=== PATIENT | female | born 1970 | race Caucasian/White ===

== ENCOUNTER 2017-04-18 15:08 | Observation (INO) ==
[2017-04-18] MEDS ORDERED: Ondansetron 4 MG/2 ML VIAL IVP ONE (15:36)
[2017-04-18] MEDS ORDERED: 0.9 % Sodium Chloride 1,000 ML IVC ONE (15:36)
[2017-04-18] MEDS ORDERED: Ketorolac 30 MG/ML VIAL IVP ONE (15:36)
[2017-04-18] MEDS ORDERED: *HR* LORazepam 2 MG/ML VIAL ONE (15:42)
--- NOTE | 2017-04-18 16:06 | Emergency Department Note ---
Disposition Clinical Impression: Ureterolithiasis Hydronephrosis Qualifiers: Hydronephrosis type: with ureteral calculous obstruction Qualified Code(s): N13.2 - Hydronephrosis with renal and ureteral calculous obstruction Disposition: Admitted As Inpatient Condition: Fair Forms: ED Satisfaction Letter, Work/School Release Time of Disposition: 17:47 Abdominal Pain HPI - General Chief Complaint: ED Abdominal Pain Stated Complaint: kidney stone Time Seen by Provider: 04/18/17 15:13 Source: patient Mode of arrival: ambulatory Limitations: no limitations Nursing Notes Reviewed: Yes Vital Signs Reviewed: Yes - History of Present Illness HPI Narrative: Patient is a 46-year-old female who presents to [facility] ED with a chief complaint of right lower quadrant abdominal pain x 2 weeks. States she has a history of kidney stones and this feels just like a kidney stone. States she has had many kidney stones in the past and has had to have surgery 10 years ago for this. Admits to nausea and dry heaving, no vomiting. No fevers or chills. Has been experiencing some burning with urination. Pt Subjective Complaint: abdominal pain Onset (ago): week(s) Consistency: Worsening Location: RLQ Pain Severity: severe Pain Scale: 9 Quality: aching Radiation: none Migration to: no migration Improves with: nothing Worsens with: nothing Associated symptoms: Reports: nausea, dysuria. Denies: vomiting, diarrhea, fever Treatments prior to arrival: none - Related Data Home Medications Medication Instructions Recorded Confirmed Albuterol Sulfate [Albuterol 2 puff IH Q4H PRN 11/18/16 02/02/17 Inhaler] Budesonide/Formoterol 160/4.5 2 puff IH BIDR 11/18/16 02/02/17 [Symbicort 160/4.5] Previous Rx's Medication Instructions Recorded Azithromycin [Azithromycin 6-Tab 250 mg PO PER PKG DI #6 tab 02/02/17 Pack] Benzonatate [Tessalon] 100 - 200 mg PO TID PRN #30 capsule 02/02/17 predniSONE [PredniSONE] 20 mg PO DAILY #18 tablet 02/02/17 Allergies Allergy/AdvReac Type Severity Reaction Status Date / Time No Known Allergies Allergy Verified 02/02/17 11:35 All systems ED: reviewed and negative except as stated. 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 , bilateral tubal ligation Psychiatric history: Reports: anxiety - Social History Smoking status: Never smoker Alcohol use: Reports: none Drug use: Reports: none Physical Exam - General Limitations: no limitations General appearance: alert - Head Head exam: atraumatic, normocephalic, normal inspection - Eye Eye exam: Present: normal appearance, PERRL, EOMI - ENT ENT exam: normal exam, normal oropharynx, mucous membranes moist - Neck Neck exam: Present: normal inspection, full ROM, trachea midline - Chest Chest inspection: Present: normal inspection, symmetric chest wall rise - Respiratory Respiratory exam: Present: normal lung sounds bilaterally - Cardiovascular Cardiovascular exam: Present: regular rate, normal rhythm, normal heart sounds - Abdominal Exam Abdominal exam: Present: soft, tenderness. Absent: distention, guarding, rebound, rigidity Abdominal tenderness: Present: RLQ, moderate - Extremities Exam Extremities exam: Present: normal inspection, full ROM. Absent: tenderness, pedal edema - Back Exam Back exam: Present: normal inspection, full ROM. Absent: tenderness - Neurological Exam Neurological exam: Present: alert, oriented X3 - Psychiatric Psychiatric exam: Present: normal affect, normal mood - Skin Skin exam: Present: warm, dry, intact, normal color Course Course Narrative: Patient seen and examined. Right lower quadrant abdominal pain with history of kidney stones. Since she has been trying to pass this on for the last 2 weeks and has had required prior surgery for this, we will order a CT abdomen and pelvis. We will check basic labs her renal function and urine analysis. Toradol ordered for pain but patient states she is allergic. 1 mg IV Dilaudid ordered. Patient follows with urologist Dr. Belcher. - Reevaluation(s) Reevaluation #1: Lab work and urine analysis unremarkable. CT scan shows 5 mm stone in the right mid ureter causing mild hydronephrosis. Patient is requesting for this to be removed since she has waited it out at home for the last 2 weeks. I discussed the case with urologist Dr. Torrez who has accepted patient for admission. Time: 17:47 Vital Signs Temperature 98.4 F 04/18/17 15:11 Pulse Rate 84 04/18/17 15:11 Respiratory Rate 18 04/18/17 15:11 Blood Pressure 124/83 04/18/17 15:11 O2 Sat by Pulse Oximetry 97 04/18/17 15:11 Temperature 98.4 F 04/18/17 15:11 Pulse Rate 84 04/18/17 15:11 Respiratory Rate 18 04/18/17 15:11 Blood Pressure 124/83 04/18/17 15:11 O2 Sat by Pulse Oximetry 97 04/18/17 15:11 Oxygen Delivery Oxygen Delivery Room Air Abdominal Pain - Medical Records Medical records reviewed: Yes I reviewed the patient's medical records. - Lab Data Lab results reviewed: Yes I reviewed the patient's lab results. Result diagrams: 04/18/17 16:24 04/18/17 16:24 Lab Results 04/18/17 04/18/17 04/18/17 Range/Units 16:24 16:24 17:03 WBC 6.4 (4.3-11.1) K/mcL RBC 5.23 H (3.82-4.97) M/mcL Hgb 14.9 (11.5-15.4) g/dL Hct 45.1 H (35.3-44.9) % MCV 86.2 (83.0-100.0) fL MCH 28.5 (28.0-33.3) pg MCHC 33.0 (31.6-35.5) g/dL RDW 12.5 (11.5-14.5) % Plt Count 224 (140-400) K/mcL MPV 9.5 (9.4-12.4) fL Immature Gran % 0.2 (0-4) % Seg Neutrophils % 57.8 % Lymphocytes % 33.5 % Monocytes % 6.5 % Eosinophils % 1.4 % Basophils % 0.6 % Neutrophils # 3.7 (1.6-8.9) K/mcL Lymphocytes # 2.2 (0.6-4.6) K/mcL Monocytes # 0.4 (0.0-1.3) K/mcL Eosinophils # 0.1 (0.0-0.6) K/mcL Basophils # 0.0 (0.0-0.2) K/mcL Sodium 138 (136-145) mEq/L Potassium 3.8 (3.5-5.1) mEq/L Chloride 107 (98-107) mEq/L Carbon Dioxide 24 (23-29) mEq/L BUN 9 (6-20) mg/dL Creatinine 0.61 (0.60-1.20) mg/dL Est GFR ( Amer) > 60 (> 60) Est GFR (Non-Af Amer) > 60 (> 60) BUN/Creatinine Ratio 15 (6-26) Glucose 90 (70-105) mg/dL Calculated Osmolality 284 (280-300) Calcium 9.6 (8.6-10.3) mg/dL Total Bilirubin 0.4 (0.3-1.0) mg/dL Direct Bilirubin 0.1 (0.0-0.2) mg/dL Indirect Bilirubin 0.3 (0.0-1.2) mg/dL AST 41 H (13-39) Units/L ALT 48 (7-52) Units/L Alkaline Phosphatase 71 (34-104) Units/L Serum Total Protein 7.3 (6.4-8.9) g/dL Albumin 4.2 (3.5-5.7) g/dL Globulin 3.1 (2.4-3.5) g/dL Albumin/Globulin Ratio 1.4 (1.1-2.2) Lipase 10 L (11-82) Units/L Urine Color Yellow (Yellow) Urine Clarity Cloudy A (Clear) Urine pH 5.5 (5.0-8.0) pH Units Ur Specific [place] 1.028 H (1.010-1.025) Urine Protein 30 H (Neg-Trace) mg/dL Urine Glucose (UA) Normal (Normal) mg/dL Urine Ketones Negative (Negative) mg/dL Urine Blood Large H (Negative) Urine Nitrite Negative (Negative) Urine Bilirubin Negative (Negative) Urine Urobilinogen Normal (Normal) mg/dL Ur Leukocyte Esterase Negative (Negative) - Radiology Data Radiology results reviewed: Yes I reviewed the patient's radiology results. Abdomen/Pelvis CT 04/18/17 15:37 IMPRESSION: 1. Mildly obstructing right mid ureterolithiasis. 2. Left nephrolithiasis peer D/ / Mark Petty MD / Mark Petty MD Interpreting Provider: Mark Petty MD
[2017-04-18 16:37] LABS: Basophils % 0.6 %; Eosinophils # 0.1 K/mcL (0.0-0.6); Eosinophils % 1.4 %; Hematocrit 45.1 % (35.3-44.9); Hemoglobin 14.9 g/dL (11.5-15.4); Immature Granulocytes % 0.2 % (0-4); Lymphocytes # 2.2 K/mcL (0.6-4.6); Lymphocytes % 33.5 %; Mean Corpuscular Hemoglobin 28.5 pg (28.0-33.3); Mean Corpuscular Volume 86.2 fL (83.0-100.0); Mean Platelet Volume 9.5 fL (9.4-12.4); Monocytes # 0.4 K/mcL (0.0-1.3); Monocytes % 6.5 %; Neutrophils # 3.7 K/mcL (1.6-8.9); Platelet Count 224 K/mcL (140-400); Red Blood Count 5.23 M/mcL (3.82-4.97); Red Cell Distribution Width 12.5 % (11.5-14.5); Segmented Neutrophils % 57.8 %
--- NOTE | 2017-04-18 16:38 | Emergency Department Note ---
START Narrative - START START: I examined this patient and my medical decision-making was reviewed with the Resident Physician. I agree with the documented findings, disposition and treatment plan as described except to the extent set forth below. 46 year old female prsents to the ED with complaints of kdiney stne pain. She states that she has passed most of her stones but has only neede bsket retrival once per Dr. Belcher. She states that she has tried to pass this stone for the past two weeks and has been unsuccessful and the pain is reoccuring more frequently. I have informed patine toher right sided kidney stone with hydro and she would like to have it immeadiately removed secondary to intractable pain and nausea/vomitting. We will complete workup and consult urology for admission.
[2017-04-18] MEDS ORDERED: *HR* HYDROmorphone (PF) 1 MG/ML SYRINGE IVP ONE (16:43)
[2017-04-18 16:53] LABS: Alanine Aminotransferase 48 Units/L (7-52); Albumin 4.2 g/dL (3.5-5.7); Albumin/Globulin Ratio 1.4 (1.1-2.2); Alkaline Phosphatase 71 Units/L (34-104); Aspartate Amino Transferase 41 Units/L (13-39); BUN/Creatinine Ratio 15 (6-26); Bilirubin,Direct 0.1 mg/dL (0.0-0.2); Bilirubin,Indirect 0.3 mg/dL (0.0-1.2); Bilirubin,Total 0.4 mg/dL (0.3-1.0); Blood Urea Nitrogen 9 mg/dL (6-20); Calcium 9.6 mg/dL (8.6-10.3); Carbon Dioxide 24 mEq/L (23-29); Chloride 107 mEq/L (98-107); Globulin 3.1 g/dL (2.4-3.5); Glucose 90 mg/dL (70-105); Lipase 10 Units/L (11-82); Osmolality,Calculated 284 (280-300); Potassium 3.8 mEq/L (3.5-5.1); Sodium 138 mEq/L (136-145); Total Protein 7.3 g/dL (6.4-8.9); eGFR For African Americans > 60 (> 60); eGFR For Non-African Americans > 60 (> 60)
[2017-04-18 17:14] LABS: Bilirubin,Urine Negative (Negative); Blood,Urine Large (Negative); Clarity,Urine Cloudy (Clear); Color,Urine Yellow (Yellow); Glucose,Urine (UA) Normal (Normal); Ketones,Urine Negative (Negative); Leukocyte Esterase,Urine Negative (Negative); Nitrite,Urine Negative (Negative); PH,Urine 5.5 pH Units (5.0-8.0); Protein,Urine 30 mg/dL (Neg-Trace); Specific Gravity,Urine 1.028 (1.010-1.025); Urobilinogen,Urine Normal (Normal)
[2017-04-18 17:17] LABS: Bacteria,Urine None Seen per hpf (None-Few); Hyaline Casts,Urine None Seen per lpf (None-Few); Squamous Epithelial Cell,Urine Many per lpf (None-Few); WBC,Urine 0-3 per hpf (0-3)
[2017-04-18 17:56] LABS: RBC,Urine 50-100 per hpf (0-3)
[2017-04-18] MEDS ORDERED: Ketorolac 15 MG/ML VIAL IM PRN (18:40)
[2017-04-18] MEDS ORDERED: *HR* HYDROcodone/Acet 10/325 mg TABLET PO PRN (18:43)
[2017-04-18] MEDS ORDERED: *HR* OxyCODONE Oral Soln 5 MG/5 ML UD.LIQ PO PRN (18:44)
[2017-04-18] MEDS ORDERED: Ondansetron 4 MG/2 ML VIAL IVP PRN (18:46)
[2017-04-18] MEDS ORDERED: Ondansetron 4 MG/2 ML VIAL ONE (18:52)
[2017-04-18] MEDS: 0.9 % Sodium Chloride 1,000 ML IVC SCH (18:57)
[2017-04-18] MEDS: Budesonide/Formoterol 160/4.5 MDI IH SCH (20:26)
[2017-04-19] MEDS: 0.9 % Sodium Chloride 1,000 ML IVC SCH ×3 (03:05→23:13)
--- NOTE | 2017-04-19 08:01 | Urology History & Physical ---
Date of Encounter: 04/19/17 Time of Encounter: 07:59 Assessment and Plan (1) Ureterolithiasis Current Visit: Yes Status: Acute 46-year-old woman with a right ureteral stone was admitted for pain control. Her pain is still persistent today. She wishes to have her stone treated. I recommend proceeding with a right ureteroscopy, laser lithotripsy, and stent placement. She was informed of the risks of the procedure including but not limited to bleeding, infection, injury to other structures, need for further procedures, stent irritation, incomplete fragmentation, ureteral perforation, need for nephrostomy tube, need for open repair, risks unforeseen, and the risk of anesthesia. She is willing to proceed. History of Present Illness Chief complaint: Right ureteral stone HPI: Ms. Grover is a 46 year old female who presents with concern for right flank and right lower quadrant pain. The pain has been going on for 2 weeks. It became more severe yesterday and she presented to the emergency department. A CT scan showed evidence of a mid right ureteral stone. There was evidence of hydronephrosis. She was having worsening pain and was admitted. The pain has been sharp. It has been getting worse over time. Pain medication has improved, but oral medication was not adequate which led to the admission. She denies any fevers or chills. She has a history of overactive bladder and is status post InterStim placement. Past Med Surg Social Fam HX - Past Medical History Medical history: asthma, kidney stones Psychiatric history: anxiety - Past Surgical History Surgical History: , hysterectomy, ureteral stent, other - Social History Smoking Status: Never smoker Smokeless Tobacco Status: No Alcohol use: none Drug use: none - Family History Father Hx Family Genitourinary Disorders: Yes (Kidney stones) Medications and Allergies Albuterol Sulfate [Albuterol Inhaler] 2 puff IH Q4H PRN 11/18/16 [History] Budesonide/Formoterol 160/4.5 [Symbicort 160/4.5] 2 puff IH BIDR 11/18/16 [ History] Azithromycin [Azithromycin 6-Tab Pack] 250 mg PO PER PKG DI #6 tab 02/02/17 [Rx] Benzonatate [Tessalon] 100 - 200 mg PO TID PRN #30 capsule 02/02/17 [Rx] predniSONE [PredniSONE] 20 mg PO DAILY #18 tablet 02/02/17 [Rx] 3 Allergy/AdvReac Type Severity Reaction Status Date / Time No Known Allergies Allergy Verified 02/02/17 11:35 Review of Systems - Constitutional no chills, no fever(s) - EENT Nose, mouth and throat: no dizziness - Cardiovascular no chest pain - Respiratory no dyspnea - Gastrointestinal nausea, no vomiting - Genitourinary Genitourinary: flank pain, no hematuria - Musculoskeletal no back pain - Integumentary no erythema, no rash - Neurological no weakness - Psychiatric no suicidal ideation - Hematologic/Lymphatic no easy bleeding - Allergic/Immunologic no wheezing Exam Initial Vital Signs Temp Pulse Resp BP Pulse Ox 98.4 F 84 18 124/83 97 04/18/17 15:11 04/18/17 15:11 04/18/17 15:11 04/18/17 15:11 04/18/17 15:11 - General physical appearance Present: well developed, well nourished, no distress - Eyes Absent: icteric - ENT Present: normal nares - Neck Present: trachea midline - Respiratory Present: normal respiratory effort - Cardiovascular Cardiovascular exam IM: RRR - Abdomen Abdomen: Present: soft - Integumentary Present: no rash - Neurologic Present: normal coordination - Musculoskeletal Present: other (No edema) Urology Results - Labs 04/18/17 16:24 04/18/17 16:24 Abnormal lab results RBC 5.23 M/mcL (3.82-4.97) H 04/18/17 16:24 Hct 45.1 % (35.3-44.9) H 04/18/17 16:24 AST 41 Units/L (13-39) H 04/18/17 16:24 Lipase 10 Units/L (11-82) L 04/18/17 16:24 Urine Clarity Cloudy (Clear) A 04/18/17 17:03 Ur Specific [place] 1.028 (1.010-1.025) H 04/18/17 17:03 Urine Protein 30 mg/dL (Neg-Trace) H 04/18/17 17:03 Urine Blood Large (Negative) H 04/18/17 17:03 Urine Microscopic RBC 50-100 per hpf (0-3) H 04/18/17 17:03 Ur Squamous Epith Cells Many per lpf (None-Few) H 04/18/17 17:03 All other labs normal. - Imaging CT scan - abdomen: report reviewed, image reviewed CT scan - pelvis: report reviewed, image reviewed
--- NOTE | 2017-04-19 08:02 | Anesthesia Evaluation PreOp ---
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.) Anesthesia History: No Prior Anesthetic Complications, Past Anesthesia (Hyster, , Interstim placmeent) : No Test: Negative Alcohol Use: none Drug use: none Medications and Allergies Albuterol Sulfate [Albuterol Inhaler] 2 puff IH Q4H PRN 11/18/16 [History] Budesonide/Formoterol 160/4.5 [Symbicort 160/4.5] 2 puff IH BIDR 11/18/16 [ History] Azithromycin [Azithromycin 6-Tab Pack] 250 mg PO PER PKG DI #6 tab 02/02/17 [Rx] Benzonatate [Tessalon] 100 - 200 mg PO TID PRN #30 capsule 02/02/17 [Rx] predniSONE [PredniSONE] 20 mg PO DAILY #18 tablet 02/02/17 [Rx] Docusate [Colace] 100 mg PO BID #60 capsule 04/19/17 [Rx] Oxycodone HCl/Acetaminophen [Percocet 5-325 mg Tablet] 1 each PO Q6HR PRN 4 Days #15 tablet 04/19/17 [Rx] Phenazopyridine HCl [Pyridium] 200 mg PO TIDAC #12 tab 04/19/17 [Rx] 3 Allergy/AdvReac Type Severity Reaction Status Date / Time No Known Allergies Allergy Verified 02/02/17 11:35 - Meds/Allergy Pre-op Review Medications Reviewed: Yes Allergies Reviewed: Yes Beta Blockers on Current Med List: No Anesthesia Results - Labs 04/18/17 16:24 04/18/17 16:24 Anesthesia Exam Vital Signs Temp Pulse Resp BP Pulse Ox 04/19/17 07:00 98.1 F 74 16 111/77 97 04/19/17 05:12 98.0 F 68 16 137/82 97 04/19/17 01:08 97.9 F 77 16 138/73 97 04/18/17 18:35 98.2 F 65 15 112/54 98 04/18/17 17:59 69 18 120/75 98 04/18/17 15:11 98.4 F 84 18 124/83 97 Intake and Output 04/18/17 04/19/17 04/19/17 23:59 07:59 15:59 Intake Total 1000 / 1000 1000 / 1000 Output Total 300 / 300 300 / 300 Balance 700 / 700 700 / 700 Intake: IV Fluids 1000 / 1000 1000 / 1000 0.9 % Sodium Chloride 1,000 ML 1000 / 1000 1000 / 1000 @ 125 mls/hr IVC .Q8H MARGARET Rx#: [id number] Oral 0 / 0 0 / 0 Output: Urine 300 / 300 300 / 300 Other: Stool Characteristics Normal for Patient Weight 97.12 kg 98.612 kg Blood Glucose* 77 Patient Weight 04/19/17 23:59 Weight 98.612 kg Height: 5'3" Weight: 217# BMI = 38.5 NPO (# of Hours): MNoc Pain Scale Used: Numeric (1 - 10) - HEENT Pupil (Motor): Pupils equal, EOMI Mallampati: II Teeth: Normal Oral Opening: Greater than 3 - VOLLEYBALL REFEREE LOC: Oriented VOLLEYBALL REFEREE Motor: Normal RUE, Normal LUE, Normal RLE, Normal LLE, Normal Face VOLLEYBALL REFEREE Sensory: Normal: RUE, LUE, RLE, LLE, Face - Cardiac Rhythm: Regular JVD: Yes - Pulmonary Breath Sounds: bilateral Clear Respiratory Effort: Symmetrical Anesthesia Assess/Plan ASA Score: 3 Modified [place] Scale for Level of Consciousness: Cooperative, oriented, and tranquil Anesthetic Plan: General Monitoring Plan: Standard Monitors Recovery Plan: PACU Anes Supervising Prov Stmt: PT seen/evaluated, R&B discussed, questions answered and consent obtained. Ngoc Guzman MD
[2017-04-19] MEDS ORDERED: ceFAZolin 2,000 MG in D5% in Water (Mini-Bag+) 100 ML IVPB ONE (08:23)
[2017-04-19] MEDS ORDERED: D5% in Water (Mini-Bag+) 100 ML IVPB ONE (08:35)
--- NOTE | 2017-04-19 09:04 | Operative Note ---
Date of procedure: 04/19/17 Pre-op diagnosis: Right ureteral stone Post-op diagnosis: same Procedure: Right ureteroscopy, laser lithotripsy, and stent placement. Implants: 6 Vietnamese x 24 cm JJ stent. Complications: none Anesthesia: ISABELLAA Surgeon: Floyd Torrez Was there an account management assistant present: No Estimated blood loss (cc): 1 Specimen: Right ureteral stone Condition: stable Disposition: PACU Procedure in Detail: Indications: Kinjal is a 46-year-old woman who has a history of right flank pain. A CT scan showed a mid right ureteral stone. She has tried to pass the stone on her own but has not been able to do so. She is still having flank pain. She wishes to have the stone removed. Therefore, she elected undergo a right ureteroscopy, laser lithotripsy, basket stone extraction, and ureteral stent placement. She is aware of the risks of the procedure including but not limited to bleeding, infection, injury to other structures, need for further procedures, need for stent, stent irritation, need for nephrostomy tube, incomplete treatment, need for open repair, risks unforeseen, and the risk of anesthesia. She is on proceed. Procedure: After informed consent was obtained the patient was brought back to the operating room and placed in supine position. A time out was performed. General anesthesia was administered and an LMA was placed. She was then placed in the lithotomy position. She was prepped and draped in the usual sterile fashion. Cystoscopy was performed. The anterior urethra was normal. There was no evidence of bladder tumors. The ureteral orifices were in the normal orthotopic position. The zip wire was placed up the right ureter and was brought into the kidney under fluoroscopic guidance. The ureter was dilated with the 8/10 Vietnamese ureteral dilator. I then advanced the semirigid ureteroscope into the ureter. The stone was not seen in the distal ureter. A sensor wire was placed. The flexible ureteroscope was advanced into the mid ureter. The stone was seen over top her spine hardware on fluoroscopy. The stone was fragmented using the 200 micron laser fiber. The stone fragments were basket extracted. A 6 Vietnamese by 24cm JJ stent was then placed with good curl seen in the kidney and the bladder. The dangle string was left intact. The string was tucked into the vagina and will be used to remove the stent at a later date. The patient was then awakened from general anesthesia and brought to recovery room in good condition. All sponge, needle, and instrument counts were correct.
--- NOTE | 2017-04-19 09:06 | Discharge Summary ---
Date of Encounter: 04/21/17 Time of Encounter: 11:56 - Discharge Diagnosis (1) Ureterolithiasis Priority: Primary Status: Acute (2) Difficulty breathing Priority: Secondary Status: Acute - Discharge Medications Prescriptions: Oxycodone HCl/Acetaminophen [Percocet 5-325 mg Tablet] 1 each PO Q6HR PRN 4 Days #15 tablet PRN Reason: Pain Docusate [Colace] 100 mg PO BID #60 capsule Phenazopyridine HCl [Pyridium] 200 mg PO TIDAC #12 tab Home Medications: Albuterol Sulfate [Albuterol Inhaler] 2 puff IH Q4H PRN 11/18/16 [History] Budesonide/Formoterol 160/4.5 [Symbicort 160/4.5] 2 puff IH BIDR 11/18/16 [ History] Docusate [Colace] 100 mg PO BID #60 capsule 04/19/17 [Rx] Oxycodone HCl/Acetaminophen [Percocet 5-325 mg Tablet] 1 each PO Q6HR PRN 4 Days #15 tablet 04/19/17 [Rx] Phenazopyridine HCl [Pyridium] 200 mg PO TIDAC #12 tab 04/19/17 [Rx] Allergies/Adverse Reactions: 3 Allergy/AdvReac Type Severity Reaction Status Date / Time No Known Allergies Allergy Verified 02/02/17 11:35 Labs on day of discharge: Labs from last 24 hours 04/19/17 04/19/17 05:24 01:06 POC Glucose 77 99 H Date of admission: 04/18/17 17:43 Primary care physician: Cayetano Cortes Discharging clinician: Floyd Torrez Anticipated date of discharge: 04/21/17 - Patient Status Disposition: Home, Self-Care Condition: Fair Functional capacity at discharge: independent ambulation Overall status at discharge: patient is progressing back to baseline - Discharge Instructions Follow Up With: Ian Belcher MD [Partnered Physician] - 05/04/17 8:30 am (2-4 weeks with KUB prior) Additional Instructions: 1. She should expect to feel flank pain with voiding. 2. The patient should call for any fevers, chills, nausea, emesis, or uncontrolled pain. 3 Please provide a work excuse if necessary for up to 1 week off. - Diet and Activity Activity: increase activity as tolerated Diet: advance to your usual diet - Hospital Course Hospital course: Ms. Grover is a 46 year old female with a history of right flank pain from an obstructing right ureteral stone. She was admitted on 04/18/2017. On 04/19/2017 she underwent a right ureteroscopy, laser lithotripsy, and stent placement. She had pain control issues and remain in the hospital until postoperative day # 1. On postoperative day #1, she developed some shortness of breath. An internal medicine consultation was obtained. She had a chest x-ray and a d-dimer was normal. She was given some Benadryl and felt better. On postoperative day #2, I removed her stent. She had some pain after the stent was removed but felt better by the afternoon. At that point she was discharged home in good condition. - Time Spent with Patient Total time spent providing and/or coordinating discharge services: Exam Initial Vital Signs Temp Pulse Resp BP Pulse Ox 98.4 F 84 18 124/83 97 04/18/17 15:11 04/18/17 15:11 04/18/17 15:11 04/18/17 15:11 04/18/17 15:11 - General physical appearance Present: well developed, well nourished, no distress - Eyes Absent: icteric - ENT Present: normal nares - Neck Present: trachea midline - Respiratory Present: normal respiratory effort - Cardiovascular Cardiovascular exam IM: RRR - Abdomen Abdomen: Present: soft
[2017-04-19] MEDS ORDERED: Metoclopramide 10 MG/2 ML VIAL ONE (09:20)
[2017-04-19] MEDS ORDERED: Acetaminophen IV 1,000 MG/100 ML INFUS..BTL ONE (09:20)
[2017-04-19] MEDS ORDERED: Famotidine 20 MG/2 ML VIAL ONE (09:21)
[2017-04-19] MEDS ORDERED: *HR* FentaNYL (PF) 100 MCG/2 ML VIAL ONE (09:24)
[2017-04-19] MEDS ORDERED: *HR* Midazolam HCl 2 MG/2 ML VIAL ONE (09:24)
[2017-04-19] MEDS ORDERED: *HR* Propofol 200 MG/20 ML VIAL IVP ONE (09:24)
[2017-04-19] MEDS ORDERED: Lidocaine -MPF 2% 2 ML VIAL ONE ×2 (09:24→10:07)
[2017-04-19] MEDS ORDERED: Dexamethasone 4 MG/ML VIAL ONE (09:41)
[2017-04-19] MEDS ORDERED: Ondansetron 4 MG/2 ML VIAL ONE (09:41)
[2017-04-19] MEDS ORDERED: *HR* HYDROmorphone 2 MG TABLET PO PRN (09:58)
[2017-04-19] MEDS ORDERED: *HR* OxyCODONE Immed Rel 5 MG TABLET PO PRN (09:58)
[2017-04-19] MEDS ORDERED: *HR* HYDROcodone/Acet 7.5/325 mg TABLET PO PRN (09:58)
[2017-04-19] MEDS ORDERED: *HR* Labetalol 20 MG/4 ML SYRINGE IVP PRN (09:58)
[2017-04-19] MEDS ORDERED: *HR* Promethazine 25 MG/ML VIAL IVP PRN (09:58)
[2017-04-19] MEDS: MORPHINE SUL Oral CONC 10 MG/0.5 ML ORAL.SYG SL PRN ×2 (10:41→10:52)
--- NOTE | 2017-04-19 11:00 | Anesthesia Evaluation Post Op ---
Date of Encounter: 04/19/17 Time of Encounter: 10:59 - Vital Signs Vital Signs: Vital Signs/O2 Sat/Glucose, Most Current Temp Pulse Resp BP Pulse Ox 04/19/17 10:53 98.0 F 75 16 115/82 95 04/19/17 10:43 79 16 121/86 95 04/19/17 10:33 72 14 114/79 94 04/19/17 10:23 97.7 F 87 16 128/90 96
[2017-04-19] MEDS: Budesonide/Formoterol 160/4.5 MDI IH SCH ×2 (11:05→22:50)
[2017-04-19] MEDS ORDERED: 0.9 % Sodium Chloride 500 ML ONE (11:11)
[2017-04-19] MEDS: Ondansetron 4 MG/2 ML VIAL IVP PRN ×2 (11:56→17:22)
[2017-04-19] MEDS: *HR* OxyCODONE Oral Soln 5 MG/5 ML UD.LIQ PO PRN ×2 (11:57→18:52)
[2017-04-19] MEDS: Ketorolac 15 MG/ML VIAL IM PRN ×2 (12:47→17:21)
[2017-04-19] MEDS: *HR* HYDROcodone/Acet 10/325 mg TABLET PO PRN ×2 (15:39→21:38)
[2017-04-20] MEDS: *HR* HYDROcodone/Acet 10/325 mg TABLET PO PRN (02:12)
[2017-04-20] MEDS: *HR* OxyCODONE Oral Soln 5 MG/5 ML UD.LIQ PO PRN ×4 (04:36→22:46)
[2017-04-20] MEDS: Ondansetron 4 MG/2 ML VIAL IVP PRN (04:37)
[2017-04-20] MEDS ORDERED: Promethazine 12.5 MG in 0.9 % Sodium Chloride 50 ML IVPB PRN (06:53)
[2017-04-20] MEDS ORDERED: *HR* Belladonna Alkaloids/Opium 30 MG RECTAL SUPPOSITORY RC PRN (06:53)
--- NOTE | 2017-04-20 06:53 | Urology Progress Note ---
Date of Encounter: 04/20/17 Time of Encounter: 06:51 - Assessment and Plan (1) Ureterolithiasis Current Visit: Yes Status: Acute Assessment and plan: s/p right ureteroscopy, laser and stent placement. POD #1. Still with pain and nausea. I discussed removing her stent, but her urine is fairly bloody and I am concerned regarding clot colic. She will keep the stent in place for now. Will improve nausea control. She is aware of our shortage of IV narcotic. Continue as observation today. Will reassess later today. Progress Note Narrative: s/p right urs, laser and stent. POD #1. Still with some pain this morning. Urine is somewhat bloody. She is noting nausea. Objective Initial Vital Signs Temp Pulse Resp BP Pulse Ox 98.4 F 84 18 124/83 97 04/18/17 15:11 04/18/17 15:11 04/18/17 15:11 04/18/17 15:11 04/18/17 15:11 - General physical appearance Present: well developed, well nourished, no distress - Respiratory Present: normal respiratory effort - Abdomen Present: soft - Labs 04/18/17 16:24 04/18/17 16:24 - VTE Documentation of Mechanical Device: Intermittent pneumatic compression device Consult Discharge Plan - Plan Additional Instructions: 1. The patient can remove her stent in 3 days by pulling on the string. Please arrange for follow-up visit with Dr. Belcher in the office in 2-4 weeks. 2. She should expect to feel flank pain with voiding. 3. The patient should call for any fevers, chills, nausea, emesis, or uncontrolled pain. 4. Please provide a work excuse if necessary for up to 1 week off. Referrals: Ian Belcher MD [Partnered Physician] - (2-4 weeks with [facility] prior) Prescriptions: Oxycodone HCl/Acetaminophen [Percocet 5-325 mg Tablet] 1 each PO Q6HR PRN 4 Days #15 tablet PRN Reason: Pain Docusate [Colace] 100 mg PO BID #60 capsule Phenazopyridine HCl [Pyridium] 200 mg PO TIDAC #12 tab
[2017-04-20] MEDS: Budesonide/Formoterol 160/4.5 MDI IH SCH ×2 (07:40→20:28)
[2017-04-20] MEDS: 0.9 % Sodium Chloride 1,000 ML IVC SCH ×2 (08:19→17:56)
--- NOTE | 2017-04-20 15:51 | Internal Medicine Consult Note ---
<Arsh Haro - Last Filed: 04/20/17 16:56> Date of Encounter: 04/20/17 Time of Encounter: 15:45 - Assessment and Plan (1) Difficulty breathing Current Visit: Yes Status: Acute Assessment and plan: History of Pulmonary Embolism, not currently on anticoagulation - On physical exam patient is in no acute respiratory distress at this time, CTAB, and her vital signs are within normal limits she is currently at 95% on room air and ambulatory without difficulty. - Order CXR, Troponin, EKG, and D-Dimer to r/o cardiac cause and blood clot - If D-dimer is positive, we will order a CTA of chest (2) Ureterolithiasis Current Visit: Yes Status: Acute Assessment and plan: Patient had a right ureteroscopy, laser lithotripsy and stent placement yesterday by Dr. Torrez. Internal Medicine - CN: HPI - Data of Consult Patient: new to practice Consult date: 04/20/17 Requesting Physician: Floyd Torrez, - Consult Narrative Reason for consult: GIOVANNA History of present illness: Ms. Grover is a 46 year old female with a past medical history of asthma, kidney stones, and anxiety with a complaint of difficulty in breathing. The patient was initially admitted to urology services 2 days ago with a complaint of right- sided abdominal pain that was a 5 mm obstructing stone with right-sided hydronephrosis. The patient underwent right ureteroscopy, laser lithotripsy, and stent placement yesterday by Dr. Torrez. At 1300 today the patient was up to use the restroom she states that she felt well however after using the restroom and walking back towards her bed she experienced sudden onset of shortness of breath and states that her face was flushed. Patient states that this time on examination she still feels mildly short of breath. Patient's vitals are stable she is at 96% on room air, I ambulate the patient as well with pulse ox and she remained in the mid 90s. No tachycardia. The patient states that she has a past medical history of PE times one which she is not currently on anticoagulation for. They are her last PE occurred after undergoing a hysterectomy. She states that she experienced similar symptoms after having a spinal fusion, however the patient states that her labs were normal and she was not scanned for a PE. Patient states that she is tired because she had a difficult time sleeping last night being in the hospital. Past Med Surg Social Fam HX - Past Medical History Medical history: asthma, kidney stones Psychiatric history: anxiety - Past Surgical History Surgical History: , hysterectomy, ureteral stent, other - Social History Smoking Status: Never smoker Smokeless Tobacco Status: No Alcohol use: none Drug use: none - Family History Father Hx Family Genitourinary Disorders: Yes (Kidney stones) All systems: reviewed and no additional remarkable complaints except as stated - Constitutional Constitutional: no chills, no fever(s) - Cardiovascular Cardiovascular ROS IM: dyspnea, no chest pain, no diaphoresis, no dyspnea on exertion, no edema, no lightheadedness - Respiratory Respiratory: cough, dyspnea, no dyspnea on exertion - Gastrointestinal Gastrointestinal: no abdominal pain, no diarrhea, no nausea, no vomiting - Musculoskeletal Musculoskeletal ROS IM: no arthralgias, no back pain, no numbness - Neurological Neurological ROS: no numbness, no tingling, no weakness Internal Medicine - CN: Meds Albuterol Sulfate [Albuterol Inhaler] 2 puff IH Q4H PRN 11/18/16 [History] Budesonide/Formoterol 160/4.5 [Symbicort 160/4.5] 2 puff IH BIDR 11/18/16 [ History] Docusate [Colace] 100 mg PO BID #60 capsule 04/19/17 [Rx] Oxycodone HCl/Acetaminophen [Percocet 5-325 mg Tablet] 1 each PO Q6HR PRN 4 Days #15 tablet 04/19/17 [Rx] Phenazopyridine HCl [Pyridium] 200 mg PO TIDAC #12 tab 04/19/17 [Rx] 3 Allergy/AdvReac Type Severity Reaction Status Date / Time No Known Allergies Allergy Verified 02/02/17 11:35 Internal Medicine - CN: Exam - Constitutional Vitals: Temp Pulse Resp BP Pulse Ox 98.3 F 78 16 132/84 92 04/20/17 14:05 04/20/17 14:05 04/20/17 14:05 04/20/17 14:05 04/20/17 14:05 General appearance IM: Present: A&O X 3, no acute distress, answers questions appropriately Exam: Patient is resting in bed comfortably on exam. She is able to get up and ambulate without difficulty and without her oxygen saturation dropping below mid 90s. The patient does not appear to be in respiratory distress at this time. Patient does appear tired and groggy, however she was given a Benadryl. - Head Head exam: Present: atraumatic, normal inspection, normocephalic - Eye Eye exam: Present: EOMI, normal appearance, PERRL Pupils: Present: PERRL - Neck Neck exam general surgery: Present: full ROM, normal inspection, trachea midline. Absent: tenderness - Expanded Neck Exam Neck exam: Absent: tenderness - Respiratory Respiratory exam: Present: CTAB. Absent: chest wall tenderness, decreased breath sounds, rales, respiratory distress, rhonchi, stridor, wheezes, tachypnea - Cardiovascular Cardiovascular exam IM: Present: RRR, +S1, +S2. Absent: diastolic murmur, systolic murmur - GI/Abdominal GI/Abdominal exam IM: Present: normal bowel sounds, soft, no peritoneal signs. Absent: tenderness - Extremities Exam Extremities exam IM: Present: full ROM, normal capillary refill, normal inspection, warm. Absent: calf tenderness, pedal edema, tenderness - Expanded Lower Extremities Exam Gait: Present: observed and normal - Back Exam Back exam: Present: full ROM, normal inspection - Neurological Exam Neurological exam: Present: alert, normal gait, oriented X3, no focal deficits - Psychiatric Psychiatric exam: Present: normal affect, normal mood - Skin Skin exam IM: Present: intact, normal color, pallor, rash, warm. Absent: dry, erythema Internal Medicine - CN: Reslt - Labs CBC & Chem 7: 04/18/17 16:24 04/20/17 16:17 Consult Discharge Plan - Plan Additional Instructions: 1. The patient can remove her stent in 3 days by pulling on the string. Please arrange for follow-up visit with Dr. Belcher in the office in 2-4 weeks. 2. She should expect to feel flank pain with voiding. 3. The patient should call for any fevers, chills, nausea, emesis, or uncontrolled pain. 4. Please provide a work excuse if necessary for up to 1 week off. Referrals: Ian Belcher MD [Partnered Physician] - 05/04/17 8:30 am (2-4 weeks with [facility] prior) Prescriptions: Oxycodone HCl/Acetaminophen [Percocet 5-325 mg Tablet] 1 each PO Q6HR PRN 4 Days #15 tablet PRN Reason: Pain Docusate [Colace] 100 mg PO BID #60 capsule Phenazopyridine HCl [Pyridium] 200 mg PO TIDAC #12 tab <Thomas Trevino - Last Filed: 04/20/17 19:25> Date of Encounter: 04/20/17 Internal Medicine - CN: HPI - Data of Consult Requesting Physician: Floyd Torrez, - Consult Narrative History of present illness: Ms. Grover is a 46 year old female Internal Medicine - CN: Exam - Constitutional Vitals: Temp Pulse Resp BP Pulse Ox 98.3 F 78 16 132/84 92 04/20/17 14:05 04/20/17 14:05 04/20/17 14:05 04/20/17 14:05 04/20/17 14:05 Internal Medicine - CN: Reslt - Labs CBC & Chem 7: 04/20/17 16:17 04/20/17 16:17 Labs: Short CBC 04/20/17 Range/Units 16:17 WBC 12.9 H D (4.3-11.1) K/mcL Hgb 12.1 D (11.5-15.4) g/dL Hct 36.6 (35.3-44.9) % Plt Count 203 (140-400) K/mcL Neutrophils # 10.2 H (1.6-8.9) K/mcL BMP 04/20/17 16:17 Sodium 140 Potassium 4.1 Chloride 113 H Carbon Dioxide 22 L BUN 11 Creatinine 0.82 Glucose 121 H Calcium 8.6 Cardiac Enzymes 04/20/17 Range/Units 16:53 Troponin I < 0.03 (< 0.04) ng/mL - ABG Interpretation ABG results: PT/INR, D-dimer D-Dimer 482 ng/mLFEU (0-500) 04/20/17 16:53 - Impressions Impressions Chest X-Ray 04/20/17 16:28 IMPRESSION: Stable mild cardiomegaly. Mild pulmonary vascular congestion. Low lung volumes. D/ / Kel Paige MD / Kel Paige MD Interpreting Provider: Kel Paige MD - Attending Attestation I had a [id number] diagnostic evaluation of this patient and my medical decision-making was reviewed with the Resident Physician Dr Haro. I agree with the documented findings, disposition and treatment plan as described except to the extent set forth below. Patient reported severe shortness of breath like she does not have enough oxygen while at rest earlier today also with chest pressure. On exam she is in no acute distress. Full sentences. Heart is regular normal S1-S2 no murmurs. Lungs are clear bilaterally abdomen is soft. Extremity exam demonstrates no edema. Troponin was negative. We will obtain an EKG stat. I will stop IV fluids. Obtain echocardiogram in the morning. D-dimer was obtained earlier today and was negative. Thomas Trevino MD
[2017-04-20 16:26] LABS: Basophils # 0.1 K/mcL (0.0-0.2); Basophils % 0.4 %; Hematocrit 36.6 % (35.3-44.9); Immature Granulocytes % 1.3 % (0-4); Lymphocytes # 1.8 K/mcL (0.6-4.6); Mean Corpuscular HGB Conc 33.1 g/dL (31.6-35.5); Mean Corpuscular Hemoglobin 28.7 pg (28.0-33.3); Mean Corpuscular Volume 86.9 fL (83.0-100.0); Mean Platelet Volume 9.9 fL (9.4-12.4); Monocytes # 0.6 K/mcL (0.0-1.3); Monocytes % 4.9 %; Platelet Count 203 K/mcL (140-400); Red Blood Count 4.21 M/mcL (3.82-4.97); Red Cell Distribution Width 12.7 % (11.5-14.5); Segmented Neutrophils % 79.4 %
[2017-04-20 16:53] LABS: BUN/Creatinine Ratio 13 (6-26); Blood Urea Nitrogen 11 mg/dL (6-20); Calcium 8.6 mg/dL (8.6-10.3); Carbon Dioxide 22 mEq/L (23-29); Chloride 113 mEq/L (98-107); Glucose 121 mg/dL (70-105); Osmolality,Calculated 291 (280-300); Potassium 4.1 mEq/L (3.5-5.1); Sodium 140 mEq/L (136-145); eGFR For African Americans > 60 (> 60); eGFR For Non-African Americans > 60 (> 60)
[2017-04-20 17:14] LABS: Hemoglobin 12.1 g/dL (11.5-15.4); Neutrophils # 10.2 K/mcL (1.6-8.9)
[2017-04-20 17:17] LABS: Reactive Lymphocytes Present (Not Present)
[2017-04-21] MEDS: *HR* HYDROcodone/Acet 10/325 mg TABLET PO PRN ×2 (04:06→14:08)
--- NOTE | 2017-04-21 07:21 | Urology Progress Note ---
Date of Encounter: 04/21/17 Time of Encounter: 07:18 - Assessment and Plan (1) Ureterolithiasis Current Visit: Yes Status: Acute Assessment and plan: Postoperative day #2 status post right ureteroscopy. Stent was removed today. We will see how she feels over the course of the day. Hopefully her pain will be adequately managed and she will be ready for discharge later today. Appreciate internal medicine consultation yesterday. Progress Note Narrative: Postop day #2 status post right ureteroscopy, laser lithotripsy, stent placement. She had some shortness of breath yesterday. A hospitalist consultation was obtained. Chest x-ray was normal. D-dimer was within normal rang, too. She is feeling better. I removed her stent today. Objective Initial Vital Signs Temp Pulse Resp BP Pulse Ox 98.4 F 84 18 124/83 97 04/18/17 15:11 04/18/17 15:11 04/18/17 15:11 04/18/17 15:11 04/18/17 15:11 - General physical appearance Present: well developed, well nourished, no distress - Respiratory Present: normal respiratory effort - Abdomen Present: soft - Labs 04/20/17 16:17 04/20/17 16:17 Diabetes panel 04/20/17 Range/Units 16:17 Sodium 140 (136-145) mEq/L Potassium 4.1 (3.5-5.1) mEq/L Chloride 113 H (98-107) mEq/L Carbon Dioxide 22 L (23-29) mEq/L BUN 11 (6-20) mg/dL Creatinine 0.82 (0.60-1.20) mg/dL Glucose 121 H (70-105) mg/dL Calcium 8.6 (8.6-10.3) mg/dL Calcium panel 04/20/17 Range/Units 16:17 Calcium 8.6 (8.6-10.3) mg/dL Pituitary panel 04/20/17 Range/Units 16:17 Sodium 140 (136-145) mEq/L Potassium 4.1 (3.5-5.1) mEq/L Chloride 113 H (98-107) mEq/L Carbon Dioxide 22 L (23-29) mEq/L BUN 11 (6-20) mg/dL Creatinine 0.82 (0.60-1.20) mg/dL Glucose 121 H (70-105) mg/dL Calcium 8.6 (8.6-10.3) mg/dL Adrenal panel 04/20/17 Range/Units 16:17 Sodium 140 (136-145) mEq/L Potassium 4.1 (3.5-5.1) mEq/L Chloride 113 H (98-107) mEq/L Carbon Dioxide 22 L (23-29) mEq/L BUN 11 (6-20) mg/dL Creatinine 0.82 (0.60-1.20) mg/dL Glucose 121 H (70-105) mg/dL Calcium 8.6 (8.6-10.3) mg/dL - VTE Documentation of Mechanical Device: Intermittent pneumatic compression device Consult Discharge Plan - Plan Additional Instructions: 1. The patient can remove her stent in 3 days by pulling on the string. Please arrange for follow-up visit with Dr. Belcher in the office in 2-4 weeks. 2. She should expect to feel flank pain with voiding. 3. The patient should call for any fevers, chills, nausea, emesis, or uncontrolled pain. 4. Please provide a work excuse if necessary for up to 1 week off. Referrals: Ian Belcher MD [Partnered Physician] - 05/04/17 8:30 am (2-4 weeks with [facility] prior) Prescriptions: Oxycodone HCl/Acetaminophen [Percocet 5-325 mg Tablet] 1 each PO Q6HR PRN 4 Days #15 tablet PRN Reason: Pain Docusate [Colace] 100 mg PO BID #60 capsule Phenazopyridine HCl [Pyridium] 200 mg PO TIDAC #12 tab
[2017-04-21 08:44] LABS: Basophils % 0.3 %; Eosinophils # 0.1 K/mcL (0.0-0.6); Eosinophils % 0.6 %; Hematocrit 36.9 % (35.3-44.9); Hemoglobin 12.1 g/dL (11.5-15.4); Immature Granulocytes % 1.2 % (0-4); Lymphocytes # 2.3 K/mcL (0.6-4.6); Lymphocytes % 24.7 %; Mean Corpuscular HGB Conc 32.8 g/dL (31.6-35.5); Mean Corpuscular Hemoglobin 28.8 pg (28.0-33.3); Mean Corpuscular Volume 87.9 fL (83.0-100.0); Mean Platelet Volume 9.6 fL (9.4-12.4); Monocytes # 0.4 K/mcL (0.0-1.3); Monocytes % 4.6 %; Nucleated Red Blood Cells 0.4 /100 WBC (0); Platelet Count 186 K/mcL (140-400); Segmented Neutrophils % 68.6 %
[2017-04-21 09:15] LABS: Neutrophils # 6.5 K/mcL (1.6-8.9)
[2017-04-21] MEDS: *HR* OxyCODONE Oral Soln 5 MG/5 ML UD.LIQ PO PRN (09:59)
--- NOTE | 2017-04-21 10:17 | Internal Med Progress Note ---
<Cristofer Murguia - Last Filed: 04/21/17 15:35> Date of Encounter: 04/21/17 Time of Encounter: 09:15 - Assessment and plan (1) Difficulty breathing Status: Acute Assessment and plan: Improved, no respiratory distress currently. Troponin negative. D-dimer negative, unlikely PE. CXR on 04/20/17 showed Stable mild cardiomegaly. Mild pulmonary vascular congestion. Low lung volumes. Echo on 04/21/17 with LVEF 60-65%. Normal LV chamber size, wall thickness and function. Indeterminate diastolic function. Normal right ventricular structure and function. No evidence of pulmonary hypertension. No significant valvular dysfunction. Possibly secondary to anxiety. No clear source of previous difficulty in breathing, however this has resolved and patient stable today without issue. No further treatment or workup recommended at this time. (2) Ureterolithiasis Status: Acute Assessment and plan: Postoperative day #2 status post right ureteroscopy. Stent was removed today by urology. Patient re-evaluated this afternoon, notes pain continues to improve. (3) Leukocytosis Status: Resolved Assessment and plan: CBC rechecked prior to discharge as it had doubled yesterday from previous draw. Noted returned to normal today, possible transient rise due to ureterolithiasis. CBC 6.4>12.9>9.4. Afebrile. No acute distress. No further treatment or workup recommended. Qualifiers: Leukocytosis type: unspecified Qualified Code(s): D72.829 - Elevated white blood cell count, unspecified - Time Spent With Patient less than 15 minutes - Subjective Interval history: Patient seen and examined lying in bed, notes ureter stent removed this AM by urology; pelvic pain resolved but R CVA tenderness slightly worsened. Patient noted echo completed this AM. No chest pain or shortness of breath currently. No acute distress. - Constitutional Vitals: Temp Pulse Resp BP Pulse Ox 98.0 F 59 16 126/85 96 04/21/17 08:09 04/21/17 08:09 04/21/17 08:09 04/21/17 08:09 04/21/17 08:09 General appearance: Present: cooperative, A&O X 3, no acute distress, answers questions appropriately - Head Head exam: Present: atraumatic, normocephalic - Eye Eye exam: Present: EOMI, conjuntiva pink - Neck Neck exam general surgery: Present: supple, trachea midline - Respiratory Respiratory exam: Present: CTAB. Absent: accessory muscle use, rales, rhonchi, wheezes - Cardiovascular Cardiovascular exam: Present: RRR, +S1, +S2. Absent: diastolic murmur, gallop, rubs, systolic murmur - GI/Abdominal GI/Abdominal exam: Present: normal bowel sounds, soft, no peritoneal signs. Absent: distended Additional comments: Mild R CVA/flank tenderness to palpation. - Extremities Exam Extremities exam: Present: tenderness - Neurological Exam Neurological exam: Present: alert, oriented X3, no focal deficits. Absent: facial droop, speech deficit - Skin Skin exam: Present: dry, intact Internal Medicine: Result - Labs CBC & Chem 7: 04/21/17 08:36 04/20/17 16:17 Labs: Short CBC 04/20/17 04/21/17 Range/Units 16:17 08:36 WBC 12.9 H D 9.4 (4.3-11.1) K/mcL Hgb 12.1 D 12.1 (11.5-15.4) g/dL Hct 36.6 36.9 (35.3-44.9) % Plt Count 203 186 (140-400) K/mcL Neutrophils # 10.2 H 6.5 (1.6-8.9) K/mcL BMP 04/20/17 16:17 Sodium 140 Potassium 4.1 Chloride 113 H Carbon Dioxide 22 L BUN 11 Creatinine 0.82 Glucose 121 H Calcium 8.6 Cardiac Enzymes 04/20/17 Range/Units 16:53 Troponin I < 0.03 (< 0.04) ng/mL - ABG Interpretation ABG results: PT/INR, D-dimer D-Dimer 482 ng/mLFEU (0-500) 04/20/17 16:53 - Impressions Impressions Chest X-Ray 04/20/17 16:28 IMPRESSION: Stable mild cardiomegaly. Mild pulmonary vascular congestion. Low lung volumes. D/ / Kel Paige MD / Kel Paige MD Interpreting Provider: Kel Paige MD Abdomen/Pelvis CT 04/18/17 15:37 IMPRESSION: 1. Mildly obstructing right mid ureterolithiasis. 2. Left nephrolithiasis peer D/ / Mark Petty MD / Mark Petty MD Interpreting Provider: Mark Petty MD Fluoroscopy 04/19/17 09:32 IMPRESSION: Intraprocedural fluoroscopic spot images as above. See separate procedure report for more information. D/ / 04/19/2017 10:24:16 Judi Alfaro MD / stacy Interpreting Provider: Judi Alfaro MD X-Ray 04/19/17 09:32 IMPRESSION: Intraprocedural fluoroscopic spot images as above. See separate procedure report for more information. D/ / 04/19/2017 10:24:16 Judi Alfaro MD / stacy Interpreting Provider: Judi Alfaro MD Chest X-Ray 04/20/17 16:28 IMPRESSION: Stable mild cardiomegaly. Mild pulmonary vascular congestion. Low lung volumes. D/ / Kel aPige MD / Kel Paige MD Interpreting Provider: Kel Paige MD Echocardiogram 04/21/17 19:21 Impressions: LVEF 60-65%. Normal LV chamber size, wall thickness and function. Indeterminate diastolic function. Normal right ventricular structure and function. No evidence of pulmonary hypertension. No significant valvular dysfunction. Left Ventricular Wall Motion: Rest Echo Findings All wall segments showed normal motion. Findings: Study Quality * Technically adequate exam. ECG Findings * Normal sinus rhythm. Left Ventricle * LVEF 60-65%. * Normal LV chamber size, wall thickness and function. * Indeterminate diastolic function. Right Ventricle * Normal right ventricular structure and function. Left Atrium * Mild to moderately dilated left atrium. Right Atrium * Mildly dilated right atrium. Interatrial Septum * Interatrial septum not well evaluated. Aortic Valve * Aortic valve not well visualized. * No aortic regurgitation. * No aortic stenosis. Mitral Valve * Normal mitral valve structure and function. * No mitral regurgitation. * No mitral stenosis. Tricuspid Valve * Normal tricuspid valve structure and function. * Trace tricuspid regurgitation. * No evidence of pulmonary hypertension. Pulmonic Valve * Normal pulmonic valve structure and function. * Trace pulmonic regurgitation. Aorta * Normally sized aortic root. Pericardium * The pericardium appears normal. IVC * Normal IVC dimensions and inspiratory collapse. Pulmonary Artery * Normal visualized portions of the main pulmonary artery. - VTE Documentation of Mechanical Device: Intermittent pneumatic compression device Consult Discharge Plan - Plan Instructions: Hydronephrosis (DC) Additional Instructions: 1. She should expect to feel flank pain with voiding. 2. The patient should call for any fevers, chills, nausea, emesis, or uncontrolled pain. 3 Please provide a work excuse if necessary for up to 1 week off. Referrals: Ian Belcher MD [Partnered Physician] - 05/04/17 8:30 am (2-4 weeks with [facility] prior) Prescriptions: Oxycodone HCl/Acetaminophen [Percocet 5-325 mg Tablet] 1 each PO Q6HR PRN 4 Days #15 tablet PRN Reason: Pain Docusate [Colace] 100 mg PO BID #60 capsule Phenazopyridine HCl [Pyridium] 200 mg PO TIDAC #12 tab <Javad Nunes - Last Filed: 04/21/17 19:00> Date of Encounter: 04/21/17 - Assessment and plan (1) Difficulty breathing Status: Acute (2) Ureterolithiasis Status: Acute (3) Hydronephrosis Status: Acute Qualifiers: Hydronephrosis type: with ureteral calculous obstruction Qualified Code(s) : N13.2 - Hydronephrosis with renal and ureteral calculous obstruction - Constitutional Vitals: Temp Pulse Resp BP Pulse Ox 98.0 F 61 16 141/86 94 04/21/17 12:16 04/21/17 12:16 04/21/17 12:16 04/21/17 12:16 02/20/18 12:16 Internal Medicine: Result - Labs CBC & Chem 7: 04/21/17 08:36 04/20/17 16:17 Labs: Short CBC 04/21/17 Range/Units 08:36 WBC 9.4 (4.3-11.1) K/mcL Hgb 12.1 (11.5-15.4) g/dL Hct 36.9 (35.3-44.9) % Plt Count 186 (140-400) K/mcL Neutrophils # 6.5 (1.6-8.9) K/mcL - ABG Interpretation ABG results: PT/INR, D-dimer D-Dimer 482 ng/mLFEU (0-500) 04/20/17 16:53 - Impressions Impressions Echocardiogram 04/21/17 19:21 Impressions: LVEF 60-65%. Normal LV chamber size, wall thickness and function. Indeterminate diastolic function. Normal right ventricular structure and function. No evidence of pulmonary hypertension. No significant valvular dysfunction. Left Ventricular Wall Motion: Rest Echo Findings All wall segments showed normal motion. Findings: Study Quality * Technically adequate exam. ECG Findings * Normal sinus rhythm. Left Ventricle * LVEF 60-65%. * Normal LV chamber size, wall thickness and function. * Indeterminate diastolic function. Right Ventricle * Normal right ventricular structure and function. Left Atrium * Mild to moderately dilated left atrium. Right Atrium * Mildly dilated right atrium. Interatrial Septum * Interatrial septum not well evaluated. Aortic Valve * Aortic valve not well visualized. * No aortic regurgitation. * No aortic stenosis. Mitral Valve * Normal mitral valve structure and function. * No mitral regurgitation. * No mitral stenosis. Tricuspid Valve * Normal tricuspid valve structure and function. * Trace tricuspid regurgitation. * No evidence of pulmonary hypertension. Pulmonic Valve * Normal pulmonic valve structure and function. * Trace pulmonic regurgitation. Aorta * Normally sized aortic root. Pericardium * The pericardium appears normal. IVC * Normal IVC dimensions and inspiratory collapse. Pulmonary Artery * Normal visualized portions of the main pulmonary artery. - Attending Attestation I examined this patient and my medical decision-making was reviewed with the Resident Physician on 04/21/17. I agree with the documented findings, disposition and treatment plan as described except to the extent set forth below. Ms Grover is currently admitted for acute ureterolithiasis. We were consulted for dyspnea. She has improved today and is to be discharged. Exam alert. Comfortable Heart reg No wheeze Echo normal I/P 1. Dyspnea OK to discharge today.
[2017-04-21] MEDS: Budesonide/Formoterol 160/4.5 MDI IH SCH (11:34)
[2017-04-21 12:17] VITALS: BP 141/86
--- NOTE | 2017-04-22 01:48 | Electrocardiograph Report ---
[address] [place], [place] [address] Test Date: 2017-04-20 Pat Name: Kinjal Grover Department: 115 Room: 3A35 Gender: F [employer]: [id number] : 1970 Requested By: Arsh Haro Order Number: [id number] Reading MD: Lorin Soliman Measurements Intervals Liberal Rate: 69 P: 7 NE: 151 QRS: -10 QRSD: 96 T: 3 QT: 402 QTc: 422 Interpretive Statements SINUS RHYTHM LOW QRS VOLTAGE IN PRECORDIAL LEADS POSSIBLE RIGHT VENTRICULAR CONDUCTION DELAY MODERATE T-WAVE ABNORMALITY, CONSIDER ANTERIOR ISCHEMIA Electronically Signed On 04-22-2017 1:47:10 EST by Lorin Soliman
== END 2017-04-21 16:24 | disposition home or self-care (01) ==
LOC: 3ANU 15:08 → EMEROO 15:08 → SUATTDRO 17:43 → 3ANU 17:52
PROVIDERS: ADMIT Urology; ATTEND Internal Medicine